=== PATIENT | female | born 1970 | race Asian ===

== ENCOUNTER 2018-09-19 06:01 | Day surgery (SDC) | payer OTHER ==
[~2018-09-19] VITALS: Ht 147.3 cm; Wt 54.1 kg
[2018-09-19 07:09] VITALS: Ht 147.3 cm; Wt 54.1 kg
[2018-09-19] MEDS ORDERED: no home meds (07:16)
[2018-09-19] MEDS ORDERED: DIPHENHYDRAMINE 50 MG INJ ONE (07:45)
[2018-09-19] MEDS ORDERED: FENTAnyl 50 MCG/ML VIAL ONE (08:28)
[2018-09-19] MEDS ORDERED: MIDAZOLAM 1 MG/ML 2 ML INJ ONE ×4 (08:28)
[2018-09-19] MEDS ORDERED: MEPERIDINE 50 MG INJ ONE (08:29)
[2018-09-19 08:54] VITALS: BP 125/72; PULSE 59; RESP 15
== END 2018-09-19 10:11 | disposition home or self-care (01) ==
LOC: GIL 06:01
PROVIDERS: ATTEND Internal Medicine Gastroenterology
DX: D12.5 Benign neoplasm of sigmoid colon (principal); K57.30 Diverticulosis of large intestine without perforation or abscess without bleeding; K64.4 Residual hemorrhoidal skin tags
CPT/HCPCS: 45380; 45385; J1200; J2175; J2250; J3010; 88305